=== PATIENT | male | born 1960 | race Caucasian/White ===

== ENCOUNTER 2017-12-16 14:27 | Inpatient (IN) | payer OTHER ==
[2017-12-16] VITALS (8 sets, daily range): BP systolic 157–180; BP diastolic 90–113
[~2017-12-16] VITALS: Ht 185.4 cm; Wt 70.3 kg
--- NOTE | ~2017-12-16 | PR ---
[place], [place] PROGRESS NOTE NAME: NORMA CARTER UNIT #: [id number] ROOM: 405 DOCTOR: NEHA STONE MD BIRTHDATE: [birth year] DOS: 12/18/2017 PULMONARY PROGRESS NOTE SUBJECTIVE: He had been noted comfortable, complaining of some pain in the groin with stretching his leg, otherwise noted without any abdominal pain. The patient's shortness of breath has improved after thoracentesis. Symptoms of cough and shortness of breath has been decreased. There were no symptoms of coughing, chest pain or hemoptysis. OBJECTIVE: VITAL SIGNS: normal temperature 99.6 degree Fahrenheit, respiratory rate of 20-16, heart rate 91, blood pressure 114/74. Pulse oxygen saturation room air 97% saturation. HEENT: No new change. NECK: Supple. Loss of muscle mass and the temporal muscle mass loss was noted. CARDIOVASCULAR: S1, S2 audible. LUNGS: The lung was noted with decreased sounds in the right lung base, otherwise normal. ABDOMEN: Soft, nontender. EXTREMITIES: Noted without any acute edema, clubbing or cyanosis. MUSCULOSKELETAL: Without any acute deformities. LABORATORY DATA: Sputum for preliminary culture was noted as normal azucena, final culture results were pending. Culture of the pleural fluid noted with normal azucena. CMP today noted with normal BUN and creatinine. The abnormal LFTs were still noted as well. Blood culture, no bacterial growth from the 2nd and the final results. IMPRESSION: 1. Thoracentesis for the patient done with a low-grade fever for the patient at this time. Possibility of pneumonia with lymphocyte predominant effusion, rule out other etiology. The patient with followup cytology results. 2. Liver cirrhosis. PLAN OF TREATMENT: Deescalate the antibiotics. The patient continues with Zosyn and stop all the other antibiotics. The patient has cultures were not supporting the need of the other antibiotics. Monitoring temperature curve. Obtain a chest x-ray tomorrow morning for the patient to reassess the pleural fluid on the right side, which were removed with thoracentesis. [place], [place] PROGRESS NOTE NAME: NORMA CARTER UNIT #: [id number] ROOM: 405 DOCTOR: NEHA STONE MD BIRTHDATE: [birth year] NEHA DUNN MD CM:PNTRANS [id number] NEHA HAMMER MD 12/23/17 1050 JANNA CRESPO
[~2017-12-16 14:27] MED LIST: B-1100 MG PO; LOPRESSOR25 MG PO; MULTIPLE VITAMI1 CAP PO
[2017-12-16] MEDS ORDERED: ASPIR-TRIN325 MG PO (14:39)
[2017-12-16 14:46] LABS: BASO # 0.1 10*3/uL (0.0-0.1); BASO % 0.6 % (0.0-1.0); EOS % 0.4 % (1.0-4.0); HEMATOCRIT 41.1 % (42.0-52.0); HEMOGLOBIN 13.5 g/dl (14.0-18.0); LYMPH # 1.7 10*3/uL (1.3-4.4); LYMPH % 16.6 % (27.0-41.0); MEAN CELL VOLUME 94.7 fl (80.0-94.0); MEAN CORPUSCULAR HGB 31.1 pg (27.0-31.0); MEAN CORPUSCULAR HGB CONC 32.8 g/dl (33.0-37.0); MEAN PLATELET VOLUME 10.6 fl (9.6-12.3); MONO % 10.3 % (3.0-9.0); NEUT # 7.2 10*3/uL (2.3-7.9); NEUT % 71.8 % (47.0-73.0); PLATELET COUNT AUTOMATED 162 10*3/uL (130-400); RED BLOOD COUNT 4.34 10*6/uL (4.50-5.90); RED CELL DISTRI WIDTH 13.2 % (0-14.5)
[2017-12-16 15:01] LABS: ALBUMIN 2.5 gm/dl (3.1-4.5); ALKALINE PHOSPHATASE 153 U/L (45-117); BUN 8 mg/dl (7-24); CHLORIDE 101 mmol/L (98-107); CREATININE 0.76 mg/dL (0.70-1.30); LIPASE 268 U/L (73-393); POTASSIUM 3.8 mmol/L (3.5-5.1); SGOT/AST 76 IU/L (3-35); SGPT/ALT 24 U/L (12-78); SODIUM 133 mmol/L (136-145); TOTAL PROTEIN 7.7 gm/dL (6.4-8.2)
[2017-12-16 21:18] LABS: BILIRUBIN 2+ (NEGATIVE); BLOOD NEGATIVE (NEGATIVE); CLARITY TURBID (CLEAR); COLOR ORANGE (YELLOW); GLUCOSE NEGATIVE (NEGATIVE); KETONE 1+ (NEGATIVE); NITRITE POSITIVE (NEGATIVE); PH 5.5 (5.0-9.0); SPECIFIC GRAVITY >= 1.030 (1.005-1.030)
[2017-12-16 21:37] LABS: LEUKO ESTERASE NEGATIVE (NEGATIVE)
[2017-12-17] VITALS: BP 167/97
[2017-12-17 04:00] VITALS: BP 158/96
[2017-12-17 05:57] LABS: BASO # 0.1 10*3/uL (0.0-0.1); BASO % 0.7 % (0.0-1.0); EOS # 0.1 10*3/uL (0.0-0.4); EOS % 1.2 % (1.0-4.0); HEMATOCRIT 37.9 % (42.0-52.0); HEMOGLOBIN 12.6 g/dl (14.0-18.0); LYMPH # 1.4 10*3/uL (1.3-4.4); LYMPH % 21.1 % (27.0-41.0); MEAN CELL VOLUME 95.9 fl (80.0-94.0); MEAN CORPUSCULAR HGB 31.9 pg (27.0-31.0); MEAN CORPUSCULAR HGB CONC 33.2 g/dl (33.0-37.0); MEAN PLATELET VOLUME 11.4 fl (9.6-12.3); MONO # 0.9 10*3/uL (0.1-1.0); NEUT # 4.3 10*3/uL (2.3-7.9); NEUT % 63.4 % (47.0-73.0); PLATELET COUNT AUTOMATED 127 10*3/uL (130-400); RED BLOOD COUNT 3.95 10*6/uL (4.50-5.90); RED CELL DISTRI WIDTH 13.5 % (0-14.5); WHITE BLOOD COUNT 6.8 10*3/uL (4.8-10.8)
[2017-12-17 06:29] LABS: ALBUMIN 2.2 gm/dl (3.1-4.5); BUN 10 mg/dl (7-24); CHLORIDE 102 mmol/L (98-107); CHOLESTEROL 61 mg/dL (<200); CREATININE 0.64 mg/dL (0.70-1.30); POTASSIUM 4.1 mmol/L (3.5-5.1); SGOT/AST 67 IU/L (3-35); SGPT/ALT 20 U/L (12-78); SODIUM 136 mmol/L (136-145); TRIGLYCERIDES 93 mg/dl (<150); VLDL CHOLESTEROL 19 mg/dL (6-40)
[2017-12-17 06:36] LABS: ALKALINE PHOSPHATASE 140 U/L (45-117); FREE T4 1.44 ng/dl (0.76-1.46); HDL CHOLESTEROL 16 mg/dl (40-60); LDL CHOLESTEROL 26 mg/dL (9-159)
[2017-12-17 06:38] LABS: VITAMIN D, 25-HYDROXY 7.5 ng/mL (30-100)
[2017-12-17 06:53] LABS: ACT PARTIAL THROMBO TIME 25.4 SECONDS (20.8-31.5); INTERNATIONAL NORM RATIO 1.1 (2.0-3.5)
[2017-12-17 08:00] VITALS: BP 162/99
[2017-12-17 12:00] VITALS: BP 170/92
[2017-12-17 12:17] LABS: BODY FLUID WBC 366 /uL
[2017-12-17 12:49] LABS: BF LYMPHOCYTES 16 %; BF MACROPHAGES 77 %; BF MESOTHELIALS 7 %
[2017-12-17 16:00] VITALS: BP 140/88
[2017-12-17 20:00] VITALS: BP 131/86
[2017-12-18] VITALS: BP 123/75
[2017-12-18 06:32] LABS: BASO % 0.6 % (0.0-1.0); EOS # 0.1 10*3/uL (0.0-0.4); EOS % 1.3 % (1.0-4.0); HEMOGLOBIN 12.7 g/dl (14.0-18.0); LYMPH # 1.6 10*3/uL (1.3-4.4); LYMPH % 23.8 % (27.0-41.0); MEAN CELL VOLUME 96.9 fl (80.0-94.0); MEAN CORPUSCULAR HGB 30.8 pg (27.0-31.0); MEAN CORPUSCULAR HGB CONC 31.8 g/dl (33.0-37.0); MEAN PLATELET VOLUME 11.2 fl (9.6-12.3); MONO # 0.8 10*3/uL (0.1-1.0); MONO % 11.6 % (3.0-9.0); NEUT # 4.2 10*3/uL (2.3-7.9); NEUT % 62.3 % (47.0-73.0); PLATELET COUNT AUTOMATED 122 10*3/uL (130-400); RED BLOOD COUNT 4.13 10*6/uL (4.50-5.90); RED CELL DISTRI WIDTH 13.5 % (0-14.5); WHITE BLOOD COUNT 6.7 10*3/uL (4.8-10.8)
[2017-12-18 06:40] LABS: CHLORIDE 103 mmol/L (98-107); POTASSIUM 4.5 mmol/L (3.5-5.1); SODIUM 137 mmol/L (136-145)
[2017-12-18 06:47] LABS: ALBUMIN 2.1 gm/dl (3.1-4.5); ALKALINE PHOSPHATASE 136 U/L (45-117); BUN 10 mg/dl (7-24); SGOT/AST 65 IU/L (3-35); SGPT/ALT 20 U/L (12-78); TOTAL PROTEIN 6.8 gm/dL (6.4-8.2)
[2017-12-18 08:00] VITALS: BP 127/80
[2017-12-18] MEDS ORDERED: FUROSEMIDE40 MG PO (13:02)
[2017-12-18] MEDS ORDERED: PHARMASSURE FO0.4 MG PO (13:02)
[2017-12-18] MEDS ORDERED: LOPRESSOR25 MG PO (13:02)
[2017-12-18] MEDS ORDERED: Vitamin D PO (13:02)
[2017-12-18] MEDS ORDERED: ALDACTONE25 MG PO (13:02)
== END 2017-12-18 13:25 | disposition home or self-care (01) | DRG 432 ==
LOC: ED 14:27 → EDHOLD 16:31 → 4E 17:22
PROVIDERS: Internal Medicine; Nurse Practitioner Family
PROC: 0W9G3ZZ Drainage of Peritoneal Cavity, Percutaneous Approach (ICD-10-PCS; principal; 2017-12-17)
DX: K70.31 Alcoholic cirrhosis of liver with ascites (principal); E43 Unspecified severe protein-calorie malnutrition; J90 Pleural effusion, not elsewhere classified; E87.2 Acidosis; D69.6 Thrombocytopenia, unspecified; E87.1 Hypo-osmolality and hyponatremia; R65.10 Systemic inflammatory response syndrome (SIRS) of non-infectious origin without acute organ dysfunction; J98.11 Atelectasis; F10.10 Alcohol abuse, uncomplicated; H54.61 Unqualified visual loss, right eye, normal vision left eye; F17.210 Nicotine dependence, cigarettes, uncomplicated; D72.821 Monocytosis (symptomatic); I10 Essential (primary) hypertension; I16.0 Hypertensive urgency; I86.8 Varicose veins of other specified sites; D72.810 Lymphocytopenia; D53.9 Nutritional anemia, unspecified; E55.9 Vitamin D deficiency, unspecified; E53.8 Deficiency of other specified B group vitamins; Z71.6 Tobacco abuse counseling; Z68.20 Body mass index [BMI] 20.0-20.9, adult; Z83.3 Family history of diabetes mellitus

== ENCOUNTER 2017-12-18 19:06 | Inpatient (IN) | payer OTHER ==
[~2017-12-18] VITALS: Ht 182.9 cm; Wt 68.3 kg
--- NOTE | ~2017-12-18 | CON ---
[place], [place] REPORT OF CONSULTATION NAME: NORMA CARTER UNIT #: [id number] ROOM: 516 DOCTOR: SHAUN HAMMER MDNEHA BIRTHDATE: [birth year] DOS: 12/19/2017 REQUESTING SERVICE: Hospitalist service. REASON FOR CONSULTATION: Assess the patient for current pleural fluid and shortness of breath. HISTORY OF PRESENT ILLNESS: This is a 57-year-old white male who will be seen independently today with [id number] encounter, history was confirmed for the patient. The labs were reviewed for this patient as well. Physical examination performed. Assessment of the patient for today's consultation personally completed. Any changes in recommendation and treatment was personally made as well. Note done by the medical appointment clerk was approved. This is a 57-year-old white male who has been recently discharged from the hospital on the 3rd of this month after medical management of current new onset of liver cirrhosis diagnosed with paracentesis done. The patient discharged home and returned back to the hospital for further assessment. The patient stated that the abdomen was noted with further distention with pain described where he was also noted symptoms of shortness of breath. The patient does not have any symptoms of coughing or sputum expectoration. Denies symptoms of chest pain, wheezing, or hemoptysis. He has been currently in the hospital for the medical management possibility of sepsis and other additional issues. REVIEW OF SYSTEMS: Completed by the medical appointment clerk. PAST MEDICAL HISTORY: 1. Recent diagnosis of alcoholic liver cirrhosis. 2. Blindness of the right eye, which is chronic. 3. Essential hypertension. 4. Folate deficiency. 5. Dependence on alcohol. 6. Vitamin D deficiency. PAST SURGICAL HISTORY: Noted paracentesis, which was done recently on this last admission. There were no other surgical history. SOCIAL HISTORY: The patient stated that he is currently . Has 2 children, lives at home. He has been noted with tobacco use as a teenager, 2 packs of cigarettes per day actively. He was also noted heavy drinking alcohol as vodka and whiskey on a daily basis about 1/4 of a gallon. He has been abstaining from any alcohol use for the past couple of weeks. FAMILY HISTORY: Father at age of 80 years with complication of diabetes mellitus. Mother at 86 years old from old age. HOME MEDICATIONS: Listed use of folic acid, Lasix, Lopressor, Aldactone, and vitamin D. DRUG ALLERGIES: The patient noted no known drug allergies. [place], [place] REPORT OF CONSULTATION NAME: NORMA CARTER UNIT #: [id number] ROOM: 516 DOCTOR: SHAUN HAMMER MD,NEHA BIRTHDATE: [birth year] PHYSICAL EXAMINATION: GENERAL: A 57-year-old white male, appear to be quite malnourished. The patient and cachexia for loss temporal muscle mass. HEENT: The eyes were sunken. Mild icterus was also noted, but there was no distress. VITAL SIGNS: The patient's height recorded by the nursing staff at the time of the admission with height of 6 feet. Weight of 150 pounds, BMI 20.4. Vital signs which have been recorded as a normal temperature since admission, respiratory rate 16-20, heart rate of 96-103, blood pressure 134/82-114/68. Pulse oxygen saturation on room air was 99% saturation at rest. HEENT: Head was atraumatic. Eyes: Noted with icterus. Oral mucosa was dry. NECK: Supple. Loss of temporal muscle mass as well. CARDIOVASCULAR SYSTEM: S1, S2 audible. LUNGS: Noted with absent breath sounds noted in the lower portion of the right hemithorax in the left lung base. There were no crackles or wheezing. Breaths are noted, [id number] generally diminished. ABDOMEN: Noted with ascites with tenderness on superficial palpation. Bowel sounds present. EXTREMITIES: Loss of muscle mass. VISIBLE SKIN: ____. There were no other lesions or rashes. MUSCULOSKELETAL: Loss of muscle mass noted. NEUROLOGIC: No focal neurologic deficit were assessed. There were no focal deformities. CENTRAL NERVOUS SYSTEM: No focal deficit. Cranial nerves 2-12 intact. LABORATORY DATA: The CBC that was done yesterday, WBC count normal, hemoglobin 13.6, hematocrit normal, platelet count was normal. PT/PTT were noted as INR 1.2 yesterday. The lactic acid 2.0 yesterday. Ammonia level was normal at 13. CMP yesterday on admission, BUN normal, creatinine was normal. AST 78, ALT normal, and alkaline phosphatase 174. The CBC of the patient this morning: WBC count normal, hemoglobin 11.5, hematocrit 34.8, and platelet count 109,000. CMP this morning, normal BUN and creatinine. LFTs for the patient was noted by the same with bilirubin 1.4. CT scan of the abdomen and pelvis was done yesterday afternoon shows moderate size pleural fluids were noted for the patient with area of compression atelectasis on the right side and a small left-sided pleural fluid was also noted. Several cystic areas of the lung for the patient noted in the right lower lung as well. IMPRESSION: 1. The patient will be currently admitted to the hospital noted with alcoholic liver cirrhosis, recurrent ascites with abdominal pain, rule out spontaneous bacterial peritonitis. 2. Pleural fluid may be related to the current alcoholic liver cirrhosis. The patient with the etiology including pneumonia excluded. 3. Cyst in the lung. Rule out any cystic lung disease including pulmonary Langerhans cell histiocytosis or other etiologies. 4. Thrombocytopenia related to the alcoholic liver disease. 5. History of chronic heavy alcohol dependence with the patient with abstinence of alcohol use noted in the past few weeks. [place], [place] REPORT OF CONSULTATION NAME: NORMA CARTER UNIT #: [id number] ROOM: 516 DOCTOR: SHAUN HAMMER MD,NEHA BIRTHDATE: [birth year] 6. History of chronic heavy nicotine dependence as well. PLAN OF MANAGEMENT: At this time, the patient will be continued on current antibiotic empirically. Monitor culture results. Thoracentesis was planned for the patient to be done in the morning. De-escalation of antibiotic based on the culture results. The risk and benefits of the current procedure were discussed. The patient was agreeable for the thoracentesis to be done at the bedside and that will be done tomorrow. In the meantime, continue other supportive plan of therapy care plan. Other additional treatment changes will be made based on progression of the illness. Nicotine replacement patches could be ordered in case of nicotine withdrawal. Other supportive therapy, plan of management, monitoring thrombocytopenia. There were no signs of any encephalopathy related to the current liver disease. ____ was planned to be done today. NEHA DUNN MD CM:CONSTR:REPORT OF CONSULTATION 1628 12/19/17 7209 interface
--- NOTE | ~2017-12-18 | CON ---
[place], [place] REPORT OF CONSULTATION NAME: NORMA CARTER UNIT #: [id number] ROOM: 516 DOCTOR: LIBAN LYNN DO BIRTHDATE: [birth year] DOS: 12/19/2017 REASON FOR CONSULTATION: Sepsis secondary to healthcare-associated pneumonia with a moderate right pleural effusion CONSULTING PROVIDER: The hospitalist service. HISTORY OF PRESENT ILLNESS: This patient is a 57-year-old white male who presented to the ED last night due to increased swelling and distention and pain of his abdomen. The patient had been admitted earlier this week on 09/17/2017 with similar complaints. He had a paracentesis done and was feeling better by yesterday afternoon and was discharged on 12/18/2017. The patient does note that he has had some shortness of breath, slightly worsened with exertion and he has had a cough productive of thick clear sputum. He denies any chest pain, nausea, vomiting, diarrhea or constipation, but does note periodic lightheadedness, especially when changing position from lying down or seated to standing. While in the ED, a CT of the abdomen and pelvis was done to evaluate his abdominal distention and apparent recurrent ascites. The CAT scan of the abdomen and pelvis did show moderate sized right pleural effusion and a right lower lobe opacity concerning for possible pneumonia. The CAT scan also noted mild free fluid in the abdomen and moderate free fluid in the pelvis with mesenteric edema. The patient denies any known history of liver disease, though he does admit to chronic alcohol abuse, stating he drinks 1/4 gallon of whiskey daily as well as at least 1 beer daily. The patient also admits to 2 packs per day cigarette smoking history since age 19. He denies any illicit drug use. Also of note, the patient has numerous "homemade tattoos." REVIEW OF SYSTEMS: GENERAL: Denies fevers. Denies chills. Denies any significant weight change. HEENT: Denies hearing loss. Denies drainage from the eyes, ears or nose. Denies pain in the eyes, ears or nose or mouth. Denies difficulty swallowing. Reports blurriness in the left eye and near total blindness in the right eye. CARDIOVASCULAR: Denies chest pain. Denies palpitations. Denied lower extremity edema. Denies diaphoresis. RESPIRATORY: Reports cough productive of thick clear sputum. Reports dyspnea on exertion. Reports shortness of breath. Denies hemoptysis. Denies wheezing. Denies stridor. ABDOMEN: Reports abdominal pain and distention. Denies nausea. Denies vomiting. Denies diarrhea. Denies constipation. Denies melena. Denies hematochezia. Denies hematemesis. Denies loss of appetite. GENITOURINARY: Denies dysuria. Denies hematuria. Denies increased frequency, hesitancy, or urgency. NEUROLOGIC: Denies dizziness. Denies confusion. Reports lightheadedness. PSYCHIATRIC: Denies depression. Denies anxiety. Admits to alcohol abuse. ENDOCRINE: Denies polydipsia. Denies heat intolerance. SKIN: Denies new rashes, lesions or ulcers. PAST MEDICAL HISTORY: Alcoholic liver disease, blindness of right eye, cirrhosis of liver, essential hypertension, folic acid deficiency, alcohol abuse, vitamin D deficiency. [place], [place] REPORT OF CONSULTATION NAME: NORMA CARTER UNIT #: [id number] ROOM: 6 DOCTOR: LIBAN LYNN DO BIRTHDATE: [birth year] PAST SURGICAL HISTORY: Therapeutic paracentesis performed earlier this week. SOCIAL HISTORY: Significant daily alcohol use with 0.25 gallon of whiskey daily and at least one beer daily, cigarette smoker 2 packs per day since age 19. Denies illicit drug use. Reports multiple homemade tattoos. FAMILY HISTORY: Father at age 70 from complications of diabetes. Mother in her 80s of old age. MEDICATIONS: Reported home medications: Folic acid daily supplementation, Lasix 40 mg p.o. daily, Lopressor 25 mg p.o. q. 12 hours, spironolactone 25 mg p.o. daily and vitamin D 50,000 International Units p.o. weekly taken on Tuesdays. DRUG ALLERGIES: No known drug allergies. PHYSICAL EXAMINATION: GENERAL: This is a 57-year-old white male, examined while sitting up in bed. VITAL SIGNS: He is 6 feet tall and weighs 68.3 kilograms with a BMI of 20.4. Vital signs at time of exam, temperature 98.1, pulse 88, respiratory rate 20, blood pressure 114/68, bedside pulse ox of 99% on room air. HEAD: Normocephalic, atraumatic. EYES: No scars. No lesions. No ulcerations. No drainage. Nonicteric. ENT: No lesions. No scars. No masses. Nares patent. Oropharynx clear. Oral mucosa moist. No pharyngeal erythema or exudate. NECK: Without lesions, without masses. No ulcerations. Trachea is midline. Supple and nontender. No lymphadenopathy noted. HEART: Regular rate and rhythm. No gallop. No murmur. No edema in the lower extremities. LUNGS: No respiratory distress at rest, though patient notes dyspnea with exertion. Breath sounds are absent in the right lower lobe, but no rales, rhonchi or wheezing is appreciated. ABDOMEN: Significantly distended and generally tender to palpation. Bowel sounds are present. EXTREMITIES: No clubbing. No cyanosis. No erythema. No edema. NEUROLOGIC: Grossly intact without focal neuro deficit. Sensation grossly intact. PSYCHIATRIC: Good historian. Good recent and remote memory. Fair judgment and insight. He exhibits normal mood and normal affect. SKIN: Warm, dry. No rashes, lesions or ulcerations noted. Numerous homemade tattoos are noted. LABORATORY AND DIAGNOSTIC DATA: CBC on admission: White count 9.3, hemoglobin 13.6, hematocrit 42.1, platelet count 140. CBC from this morning: White count 6.8, hemoglobin 11.5, hematocrit 34.8 and platelet count 109. Coagulation studies from admission: PT 12.5 with an INR of 1.2, APTT 25.5. CMP on admission: Sodium 136, potassium 4.6, chloride 102, bicarbonate 25, BUN 15, creatinine 0.89, glucose 105, calcium 8.7 with an albumin of 2.4, total protein 7.5 and mild transaminitis noted with normal total bilirubin of 1, but an AST of [place], [place] REPORT OF CONSULTATION NAME: NORMA CARTER UNIT #: [id number] ROOM: 516 DOCTOR: LIBAN LYNN DO BIRTHDATE: [birth year] 78, ALT of 22 and alkaline phosphatase 174. Ammonia level taken at time of admission was normal at 13. Lactic acid checked at time of admission was normal at 2. CMP this morning showed sodium 137, potassium 3.6, chloride 103, bicarbonate 24, BUN 16, creatinine 0.78, glucose 96, calcium 7.9 with an albumin of 1.9, phosphorus 3.6, low magnesium at 1.3, total bilirubin increased to 1.4, AST slight decrease to 66, ALT 18, alkaline phosphatase slight decrease to 127. Troponins have been cycled x 3 and are negative x 3. Urinary Legionella and strep antigens have been ordered and are pending. Blood cultures are pending. Sputum culture has not yet been collected. CT of the abdomen and pelvis without contrast on admission noted no obstruction or herniated bowel loops or focal inflammatory changes. Multiple mildly enlarged mesenteric and retroperitoneal nodes. Moderate right pleural effusion. Right lower lobe opacity. Pneumonia possible. Mild free fluid in the abdomen and moderate free fluid in the pelvis. There is mesenteric edema. Chest x-ray taken this morning shows new right pleural effusion. IMPRESSION: 1. Moderate right pleural effusion, most likely secondary to abdominal ascites from liver pathology. 2. Concerns for right lower lobe pneumonia as well and the patient met sepsis criteria with this. 3. Pneumonia, potentially healthcare-associated pneumonia. 4. Alcohol abuse. 5. Tobacco abuse. 6. Essential hypertension. 7. Severe protein-calorie malnutrition. PLAN OF MANAGEMENT: Continue the current broad-spectrum antibiotic regimen of vancomycin, Zosyn and Levaquin. Continue p.r.n. DuoNeb breathing treatments. Continue diuresis with IV Lasix 40 mg daily. We will plan for thoracentesis to drain the moderate size right pleural effusion for diagnostic and therapeutic purposes tomorrow. We will hold Lovenox for tomorrow in preparation for the thoracentesis. The patient has been started on nicotine supplementation with nicotine patch. He does express willingness to quit smoking cigarettes. He has also been advised to significantly cut back his alcohol consumption and understands and expresses interest in quitting his alcohol abuse as well. We thank the hospitalist team for allowing us to participate in the care of this patient. LIBAN LYNN DO [place], [place] REPORT OF CONSULTATION NAME: NORMA CARTER UNIT #: [id number] ROOM: 516 DOCTOR: LIBAN LYNN DO BIRTHDATE: [birth year] NEHA DUNN MD CM:CONSTR:REPORT OF CONSULTATION 1525 12/19/17 1825 interface
--- NOTE | ~2017-12-18 | PR ---
[place], [place] PROGRESS NOTE NAME: NORMA CARTER UNIT #: [id number] ROOM: 516 DOCTOR: NEHA STONE MD BIRTHDATE: [birth year] DOS: 12/22/2017 PULMONARY PROGRESS NOTE SUBJECTIVE: He had been noted comfortable, complaining of some pain in the groin with stretching his leg, otherwise noted without any abdominal pain. The patient's shortness of breath has improved after thoracentesis. Symptoms of cough and shortness of breath has been decreased. There were no symptoms of coughing, chest pain or hemoptysis. OBJECTIVE: VITAL SIGNS: normal temperature 99.6 degree Fahrenheit, respiratory rate of 20-16, heart rate 91, blood pressure 114/74. Pulse oxygen saturation room air 97% saturation. HEENT: No new change. NECK: Supple. Loss of muscle mass and the temporal muscle mass loss was noted. CARDIOVASCULAR: S1, S2 audible. LUNGS: The lung was noted with decreased sounds in the right lung base, otherwise normal. ABDOMEN: Soft, nontender. EXTREMITIES: Noted without any acute edema, clubbing or cyanosis. MUSCULOSKELETAL: Without any acute deformities. LABORATORY DATA: Sputum for preliminary culture was noted as normal azucena, final culture results were pending. Culture of the pleural fluid noted with normal azucena. CMP today noted with normal BUN and creatinine. The abnormal LFTs were still noted as well. Blood culture, no bacterial growth from the 2nd and the final results. IMPRESSION: 1. Thoracentesis for the patient done with a low-grade fever for the patient at this time. Possibility of pneumonia with lymphocyte predominant effusion, rule out other etiology. The patient with followup cytology results. 2. Liver cirrhosis. PLAN OF TREATMENT: Deescalate the antibiotics. The patient continues with Zosyn and stop all the other antibiotics. The patient has cultures were not supporting the need of the other antibiotics. Monitoring temperature curve. Obtain a chest x-ray tomorrow morning for the patient to reassess the pleural fluid on the right side, which were removed with thoracentesis. [place], [place] PROGRESS NOTE NAME: NORMA CARTER UNIT #: [id number] ROOM: 516 DOCTOR: NEHA STONE MD BIRTHDATE: [birth year] NEHA DUNN MD CM:WILBERT 1309 1523 NEHA HAMMER MD 12/23/17 1048 interface
--- NOTE | ~2017-12-18 | PR ---
[place], [place] PROGRESS NOTE [facility]: [id number] UNIT #: [id number] ROOM: 516 DOCTOR: LIBAN LYNN DO BIRTHDATE: [birth year] DOS: 12/20/2017 SUBJECTIVE: The patient is seen and examined while sitting upright in bed this morning. He notes no respiratory distress at this time and states he has been up and ambulating without getting short of breath. He denies any other symptoms at this time including chest pain, nausea, vomiting, fever, chills, lightheadedness or dizziness, diarrhea or constipation. He states he is eating well. Also, he notes he has still been urinating well with diuretic therapy. OBJECTIVE: VITAL SIGNS: At time of exam, temperature 97.2, pulse 96, respiratory rate 20, blood pressure 99/66 and bedside pulse ox 97% on room air. GENERAL: Alert, awake, in no acute distress, responsive and cooperative, very thin and somewhat malnourished appearing. HEAD: Normocephalic, atraumatic. EYES: No lesions, no ulcerations. Nonicteric. No drainage. ENT: No lesion, no scars, no masses. Nares patent. Oropharynx is clear. NECK: Without lesions, without masses. No ulcerations. Trachea is midline. LUNGS: Still with absent breath sounds in the right lower lobe, though the extent of the absent breath sounds has improved since yesterday. Other lung nova are clear with no wheezes, rales or rhonchi appreciated. HEART: Regular rate and rhythm. No gallop. No murmur. No edema in lower extremities. ABDOMEN: Distended abdomen, slightly softer than yesterday, slightly less tender to palpation over all quadrants. Bowel sounds are present. EXTREMITIES: No clubbing, no cyanosis, no erythema, no edema. NEUROLOGIC: Grossly intact without focal neuro deficits. Sensation grossly intact. PSYCHIATRIC: Good historian. Good recent and remote memory. Exhibits normal mood and affect. SKIN: Warm and dry. No ecchymoses. Numerous "homemade tattoos" noted. LABORATORY AND DIAGNOSTIC DATA: Pleural fluid analysis taken from thoracentesis this morning shows pH of 7.429 with 181 white blood cells and 2000 red blood cells. There is 96%, lymphocyte predominance to the white blood cell count. Pleural fluid glucose is 111. Pleural fluid total protein is 4. Pleural fluid albumin 1.8. Pleural fluid LDH 112. Pleural fluid culture and gram stain are pending. On CMP yesterday serum total protein was 6.3. The pleural fluid to serum protein ratio is greater than 0.5, indicating an exudative pleural fluid. Urinary Legionella and strep antigens are still pending. Blood cultures are negative. Chest x-ray obtained after thoracentesis does note improved pleural fluid reduction after right thoracentesis without pneumothorax. Persistent right basilar opacity remains suggesting pneumonia. Left lung is clear without left pleural effusion. No acute osseous process. Impression, there is no pneumothorax after right thoracentesis. Right basal parenchymal change compatible with pneumonia. IMPRESSION: 1. Significantly reduced right pleural effusion, status post therapeutic and diagnostic thoracentesis today. Pleural fluid analysis indicates an exudative [place], [place] PROGRESS NOTE NAME: NORMA CARTER UNIT #: [id number] ROOM: 516 DOCTOR: LIBAN LYNN DO BIRTHDATE: [birth year] pleural effusion. 2. Right lower lobe pneumonia with initial resolving subsequent sepsis, potentially healthcare-associated pneumonia. 3. Tobacco abuse. 4. Alcohol abuse. 5. Essential hypertension. 6. Severe protein-calorie malnutrition. TREATMENT PLAN: The patient is status post therapeutic and diagnostic pleural thoracentesis today with significant reduction of his pleural effusion. Continue antibiotic coverage for pneumonia. Continue antibiotic coverage for potential HCAP with vanc, Zosyn, and Levaquin and await results of pleural fluid, gram stain and culture. Continue the use of diuretic medications as well. Further abdominal workup regarding ascites and possibly a cirrhotic liver per primary team. LIBAN LYNN DO NEHA DUNN MD CM:PNBYRON 18 38 LIBAN LYNN DO 12/20/171938 interface
--- NOTE | ~2017-12-18 | PROC NOTE ---
[place], [place] PROCEDURE NOTE NAME: NORMA CARTER UNIT #: [id number] ROOM: 516 DOCTOR: SHAUN HAMMER MD,NEHA BIRTHDATE: [birth year] DOS: 12/20/2017 PREOPERATIVE DIAGNOSIS: The patient with moderate-large right pleural fluid. POSTOPERATIVE DIAGNOSES: Removal of 1000 mL or greater right pleural space without without any complication. PROCEDURE DESCRIPTION: Informed consent obtained from the patient. The patient was placed in sitting position. Ultrasound of the chest was personally performed. The site of thoracentesis was marked. The skin was cleaned with chlorhexidine solution. After that, 1% lidocaine was administered in the skin intercostal space during administration of local anesthetic, right pleural space was entered. A small amount of fluid was aspirated. After that incision was given in the skin. [place] thoracentesis catheter introduced through the incision into the right pleural space. A total of 1000+ mL pleural fluid was removed, which appeared to be yellowish in color from the right pleural space without any difficulty. Procedure well tolerated without any complication. Chest x-ray post-procedure showed marked improvement in the aeration of the lung on the right side of the patient with minimal remaining pleural fluid. There was no pneumothorax. Pleural fluid sent for all the necessary testing. NEHA DUNN MD CM:PROCNOTE:PROCEDURE NOTE [phone] NEHA HAMMER MD
--- NOTE | ~2017-12-18 | PR ---
[place], [place] PROGRESS NOTE NAME: NORMA CARTER UNIT #: [id number] ROOM: 516 DOCTOR: NEHA STONE MD BIRTHDATE: [birth year] DOS: 12/23/2017 SUBJECTIVE: The patient was noted comfortable at this time without any acute distress. He has not been noted any ongoing acute complaints at present time. The patient has not been reported any symptoms of chest pain or hemoptysis at present time. OBJECTIVE: VITAL SIGNS: The patient showed normal temperature, respiratory rate 20, heart rate 90, blood pressure 111/79, pulse ox saturation 96% to 98% at rest on room air. HEENT: No acute change. NECK: Supple. CARDIOVASCULAR: S1, S2 audible. LUNGS: Mild decreased breath sounds noted in the right lower lung. ABDOMEN: Noted soft with mild to moderate ascites. EXTREMITIES: Without any acute edema. VISIBLE SKIN: No lesions or rashes. LABORATORY DATA: Chest x-ray done this morning does not show any recurrence of pleural fluid, minimal right pleural fluid was present on the right side. IMPRESSION: 1. The patient's resolution of pleural fluid resolving, possibility of acute infection as well at this time without any recurrence of pleural fluid. 2. The patient with cirrhosis of the liver with ascites as well. The patient underwent ultrasound of the abdomen today, was noted with a finding of cirrhotic liver and lesion in the right hepatic lobe, which is described as nonspecific. Small right pleural fluid also reported as well as ascites. PLAN OF MANAGEMENT: The patient could be discharged home on oral antibiotic at this time. Outpatient followup could be established for assessment of pulmonary disease. In the meantime, continue other therapy, plan of management as well. Usual care, other supportive plan of therapy and care. [place], [place] PROGRESS NOTE NAME: NORMA CARTER UNIT #: [id number] ROOM: 516 DOCTOR: NEHA STONE MD BIRTHDATE: [birth year] NEHA DUNN MD CM:PNTRANS [phone] NEHA HAMMER MD 12/23/17 3989 interface
--- NOTE | ~2017-12-18 | PR ---
[place], [place] PROGRESS NOTE NAME: NORMA CARTER UNIT #: [id number] ROOM: 516 DOCTOR: SHAUN HAMMER MDNEHA BIRTHDATE: [birth year] DOS: 12/20/2017 The patient independently seen and examined, [id number] encounter, history was confirmed, physical examination performed, all the labs were reviewed, the assessment and management was completed, note done by the healthcare or medical were completed. SUBJECTIVE: The patient has been noted comfortable at this time, has paracentesis done yesterday. Today was planned for the thoracentesis to be done for the right pleural fluid, which was noted about moderate size, assessed with ultrasound. The patient has not been noted with symptoms of chest pain. Denies any symptoms of cough. Denies symptoms of nausea or vomiting. The patient denies any symptoms of hematemesis, melena. Denies symptoms of hematochezia. He does not have any symptoms of headache. The patient denies any abnormal lesions or itching on the skin. Remaining systems were reviewed. They were noted all negative. PHYSICAL EXAMINATION: VITAL SIGNS: For the patient which has been recorded shows the temperature noted as normal, respiratory rate 20, heart rate of 96, blood pressure of 120/76-99/66. Intake for the patient recorded as 1726/2000, negative 280 mL. Pulse oxygen saturation on room air 96% saturation at rest. HEENT: Mild icterus. Head was atraumatic. Oral mucosa moist. NECK: Supple. CARDIOVASCULAR: S1, S2 audible. LUNGS: The absent breaths are noted in the right lower lung and the left lung base. There were no wheezing or crackles. ABDOMEN: Soft, nontender. Reduction of the distention of the abdomen noted. EXTREMITIES: Without any edema, clubbing, cyanosis. VISIBLE SKIN: Noted without any lesions or rashes. MUSCULOSKELETAL SYMPTOMS: With chronic acute deformities. CENTRAL NERVOUS SYSTEM: Intact. REVIEW OF LABS FOR THIS VISIT: The culture of the urine of 12/16/2017 was noted no bacterial growth findings yesterday. Culture of the peritoneal fluid was noted as no bacterial growth on 3rd of this month. The vancomycin trough level today was noted elevated 23.4. The blood culture from 4th of this month 2 sets were noted no bacterial growth. IMPRESSION: 1. The patient with [id number] right pleural fluid with compression atelectasis with recurrent history of cirrhosis of the liver, ascites with fluid. 2. The patient with history of past heavy alcohol use as well as tobacco use as well. Currently, the patient has been abstaining from the tobacco and alcohol use. PLAN OF MANAGEMENT: Proceed with the thoracentesis with ultrasound guidance, which was already assessed at the bedside. After thoracentesis, if any [place], [place] PROGRESS NOTE NAME: NORMA CARTER UNIT #: [id number] ROOM: 6 DOCTOR: SHAUN HAMMER MD,NEHA BIRTHDATE: [birth year] additional change in treatment will be necessary, will be done afterwards. Otherwise, continue current medical management, plan of care. All other supportive therapy, plan of management and care plan. NEHA DUNN MD CM:PNTRANS [phone] NEHA HAMMER MD 12/21/17 0144 interface
--- NOTE | ~2017-12-18 | PR ---
[place], [place] PROGRESS NOTE NAME: NORMA CARTER [facility] #: [id number] UNIT #: [id number] ROOM: 516 DOCTOR: SHAUN HAMMER MDNEHA BIRTHDATE: [birth year] DOS: 12/21/2017 SUBJECTIVE: The patient was noted comfortable at this time, was complaining of some taste, which was described to be metallic in the mouth everyday whenever he eats or drinks any food or liquids. He had thoracentesis completed yesterday. The patient denies symptoms of hemoptysis or chest pain. Shortness breath was noted decreased after the thoracentesis. The pleural fluid sent for all the appropriate testing for this patient as well as yesterday. He has not been noted with symptoms of hemoptysis or abdominal pain. Denies symptoms of nausea or vomiting at the present time or edema of the lower extremity. Remaining systems were reviewed and they were noted all negative. OBJECTIVE: VITAL SIGNS: The patient showed normal temperature, respiratory rate 20, heart rate 98, blood pressure 114/72. The pulse oxygen saturation of the patient recorded as 100% on room air at rest. HEENT: Examination shows no acute changes at this time, temporary loss of muscle mass. The patient noted previously unchanged. Oral mucosa was moist. CARDIOVASCULAR: S1, S2 audible. LUNGS: The patient was noted without any crackles with decreased breaths sounds noted at the right lung base. Improvement in air entry noted from yesterday prior to thoracentesis. ABDOMEN: Soft, nontender with mild ascites. Bowel sounds are present. EXTREMITIES: Without any acute edema. MUSCULOSKELETAL: Without any acute deformities. SKIN: No lesions or rashes. CENTRAL NERVOUS SYSTEM: Cranial nerves 2-12 intact. LABORATORY ANALYSIS: Pleural fluid from yesterday noted with 181 wbc's. Glucose 111, protein of 4.0, LDH 112, pH of 7.42, cholesterol less than 50, albumin 1.8. Based on the albumin and the total protein criteria, the pleural fluid will be considered as lymphocyte predominant exudative pleural fluid. Vancomycin trough level noted at 23.4 yesterday. CBC of this morning, normal WBC count, hemoglobin 11.5, platelet count 104,000 mildly decreased. CMP of the patient, normal BUN and creatinine. Potassium 3.2. AST and ALT for the patient were noted improving. IMPRESSION: 1. The patient who has been noted, status post right-sided thoracentesis. Large volume pleural fluid noted greater than 1000 mL yesterday successfully with lymphocyte predominant exudative effusion, etiology unclear at the present time. 2. Had moderately distended abdomen, may be medication related or other reasons. 3. The patient with liver cirrhosis for the patient with ascites, status post paracentesis as well. PLAN OF MANAGEMENT: Monitor cytology of the pleural fluid as well as the cultures of the chronic infections. Acid fast smear culture was also ordered [place], [place] PROGRESS NOTE NAME: NORMA CARTER UNIT #: [id number] ROOM: 516 DOCTOR: NEHA STONE MD BIRTHDATE: [birth year] for the patient. Continuation of the diuretics, bronchodilators. Deescalate the antibiotics for the patient to hopefully tomorrow once all the culture results will be available. Supportive therapy, plan of management, other care plan. Usual treatment. Additional treatment changes will be made based on progression of the illness. NEHA DUNN MD CM:PNTRANS [id number] NEHA HAMMER MD 12/21/17 1442 interface
[~2017-12-18 19:06] MED LIST changes: +ALDACTONE25 MG PO; +ASPIR-TRIN325 MG PO; +FUROSEMIDE40 MG PO; +PHARMASSURE FO0.4 MG PO; +Vitamin D PO
[2017-12-18 19:07] VITALS: BP 150/98
[2017-12-18 19:40] LABS: BASO # 0.1 10*3/uL (0.0-0.1); BASO % 0.6 % (0.0-1.0); EOS # 0.1 10*3/uL (0.0-0.4); EOS % 0.9 % (1.0-4.0); HEMATOCRIT 42.1 % (42.0-52.0); HEMOGLOBIN 13.6 g/dl (14.0-18.0); LYMPH # 1.9 10*3/uL (1.3-4.4); LYMPH % 20.6 % (27.0-41.0); MEAN CELL VOLUME 97.2 fl (80.0-94.0); MEAN CORPUSCULAR HGB 31.4 pg (27.0-31.0); MEAN CORPUSCULAR HGB CONC 32.3 g/dl (33.0-37.0); MONO # 0.9 10*3/uL (0.1-1.0); MONO % 9.6 % (3.0-9.0); NEUT # 6.3 10*3/uL (2.3-7.9); NEUT % 67.9 % (47.0-73.0); PLATELET COUNT AUTOMATED 140 10*3/uL (130-400); RED BLOOD COUNT 4.33 10*6/uL (4.50-5.90); RED CELL DISTRI WIDTH 13.4 % (0-14.5); WHITE BLOOD COUNT 9.3 10*3/uL (4.8-10.8)
[2017-12-18 19:50] LABS: ACT PARTIAL THROMBO TIME 25.5 SECONDS (20.8-31.5); INTERNATIONAL NORM RATIO 1.2 (2.0-3.5)
[2017-12-18 19:55] LABS: ALBUMIN 2.4 gm/dl (3.1-4.5); ALKALINE PHOSPHATASE 174 U/L (45-117); BUN 15 mg/dl (7-24); CHLORIDE 102 mmol/L (98-107); CREATININE 0.89 mg/dL (0.70-1.30); POTASSIUM 4.6 mmol/L (3.5-5.1); SGOT/AST 78 IU/L (3-35); SGPT/ALT 22 U/L (12-78); SODIUM 136 mmol/L (136-145); TOTAL PROTEIN 7.5 gm/dL (6.4-8.2)
[2017-12-18 20:15] VITALS: BP 123/82
[2017-12-18 22:00] VITALS: BP 113/86
[2017-12-19] VITALS: BP 134/82
[2017-12-19 03:46] LABS: BASO % 0.4 % (0.0-1.0); EOS # 0.1 10*3/uL (0.0-0.4); EOS % 0.9 % (1.0-4.0); HEMATOCRIT 34.8 % (42.0-52.0); HEMOGLOBIN 11.5 g/dl (14.0-18.0); LYMPH # 1.2 10*3/uL (1.3-4.4); LYMPH % 17.9 % (27.0-41.0); MEAN CELL VOLUME 95.6 fl (80.0-94.0); MEAN CORPUSCULAR HGB 31.6 pg (27.0-31.0); MONO # 0.7 10*3/uL (0.1-1.0); MONO % 10.8 % (3.0-9.0); NEUT # 4.7 10*3/uL (2.3-7.9); NEUT % 69.4 % (47.0-73.0); PLATELET COUNT AUTOMATED 109 10*3/uL (130-400); RED BLOOD COUNT 3.64 10*6/uL (4.50-5.90); RED CELL DISTRI WIDTH 13.3 % (0-14.5); WHITE BLOOD COUNT 6.8 10*3/uL (4.8-10.8)
[2017-12-19 04:20] LABS: ALBUMIN 1.9 gm/dl (3.1-4.5); BUN 16 mg/dl (7-24); CHLORIDE 103 mmol/L (98-107); CREATININE 0.78 mg/dL (0.70-1.30); PHOSPHOROUS 3.6 mg/dL (2.5-4.9); POTASSIUM 3.6 mmol/L (3.5-5.1); SGOT/AST 66 IU/L (3-35); SGPT/ALT 18 U/L (12-78); SODIUM 137 mmol/L (136-145)
[2017-12-19 04:21] LABS: ALKALINE PHOSPHATASE 127 U/L (45-117); TOTAL PROTEIN 6.3 gm/dL (6.4-8.2)
[2017-12-19 08:00] VITALS: BP 114/68
[2017-12-19 12:00] VITALS: BP 100/70
[2017-12-19 16:00] VITALS: BP 127/44
[2017-12-19 20:00] VITALS: BP 123/73
[2017-12-20] VITALS: BP 120/76
[2017-12-20 08:00] VITALS: BP 99/66
[2017-12-20 13:00] VITALS: BP 100/58
[2017-12-20 13:05] LABS: BODY FLUID WBC 181 /uL
[2017-12-20 13:42] LABS: BF LYMPHOCYTES 96 %; BF MACROPHAGES 1 %; BF MESOTHELIALS 2 %; BF NEUTROPHILS 1 %
[2017-12-20 16:00] VITALS: BP 85/63
[2017-12-20 20:00] VITALS: BP 97/62
[2017-12-21] VITALS: BP 100/65
[2017-12-21 06:28] LABS: BASO % 0.5 % (0.0-1.0); EOS % 0.5 % (1.0-4.0); HEMATOCRIT 35.6 % (42.0-52.0); HEMOGLOBIN 11.5 g/dl (14.0-18.0); LYMPH # 1.2 10*3/uL (1.3-4.4); LYMPH % 15.4 % (27.0-41.0); MEAN CELL VOLUME 96.5 fl (80.0-94.0); MEAN CORPUSCULAR HGB 31.2 pg (27.0-31.0); MEAN CORPUSCULAR HGB CONC 32.3 g/dl (33.0-37.0); MEAN PLATELET VOLUME 11.6 fl (9.6-12.3); MONO % 12.6 % (3.0-9.0); NEUT # 5.3 10*3/uL (2.3-7.9); NEUT % 70.6 % (47.0-73.0); PLATELET COUNT AUTOMATED 104 10*3/uL (130-400); RED BLOOD COUNT 3.69 10*6/uL (4.50-5.90); RED CELL DISTRI WIDTH 13.6 % (0-14.5); WHITE BLOOD COUNT 7.6 10*3/uL (4.8-10.8)
[2017-12-21 06:52] LABS: ALBUMIN 1.8 gm/dl (3.1-4.5); ALKALINE PHOSPHATASE 125 U/L (45-117); BUN 16 mg/dl (7-24); CHLORIDE 106 mmol/L (98-107); CREATININE 0.97 mg/dL (0.70-1.30); POTASSIUM 3.2 mmol/L (3.5-5.1); SGOT/AST 64 IU/L (3-35); SGPT/ALT 18 U/L (12-78); SODIUM 139 mmol/L (136-145); TOTAL PROTEIN 6.1 gm/dL (6.4-8.2)
[2017-12-21 08:00] VITALS: BP 114/72
[2017-12-21 12:00] VITALS: BP 102/62
[2017-12-21 16:00] VITALS: BP 115/64
[2017-12-21 20:00] VITALS: BP 106/57
[2017-12-22] VITALS: BP 107/60
[2017-12-22 06:38] LABS: BASO % 0.4 % (0.0-1.0); EOS % 0.5 % (1.0-4.0); HEMATOCRIT 35.7 % (42.0-52.0); HEMOGLOBIN 11.4 g/dl (14.0-18.0); LYMPH % 12.1 % (27.0-41.0); MEAN CELL VOLUME 97.5 fl (80.0-94.0); MEAN CORPUSCULAR HGB 31.1 pg (27.0-31.0); MEAN CORPUSCULAR HGB CONC 31.9 g/dl (33.0-37.0); MONO # 1.2 10*3/uL (0.1-1.0); MONO % 13.9 % (3.0-9.0); NEUT # 6.1 10*3/uL (2.3-7.9); NEUT % 72.4 % (47.0-73.0); PLATELET COUNT AUTOMATED 99 10*3/uL (130-400); RED BLOOD COUNT 3.66 10*6/uL (4.50-5.90); RED CELL DISTRI WIDTH 13.7 % (0-14.5); WHITE BLOOD COUNT 8.4 10*3/uL (4.8-10.8)
[2017-12-22 06:51] LABS: ALBUMIN 1.8 gm/dl (3.1-4.5); ALKALINE PHOSPHATASE 136 U/L (45-117); BUN 14 mg/dl (7-24); CHLORIDE 107 mmol/L (98-107); CREATININE 0.92 mg/dL (0.70-1.30); POTASSIUM 3.7 mmol/L (3.5-5.1); SGOT/AST 68 IU/L (3-35); SGPT/ALT 20 U/L (12-78); SODIUM 139 mmol/L (136-145); TOTAL PROTEIN 6.3 gm/dL (6.4-8.2)
[2017-12-22 08:00] VITALS: BP 114/74
[2017-12-22] MEDS ORDERED: NICODERM T (10:07)
[2017-12-22 12:00] VITALS: BP 115/60
[2017-12-22 12:08] LABS: ACID FAST SPEC PROCESSING Concentration (.)
[2017-12-22 16:00] VITALS: BP 113/70
[2017-12-22 20:00] VITALS: BP 104/68
[2017-12-23] VITALS: BP 104/57
[2017-12-23 04:00] VITALS: BP 106/60
[2017-12-23 06:22] LABS: BASO # 0.1 10*3/uL (0.0-0.1); BASO % 0.6 % (0.0-1.0); EOS # 0.1 10*3/uL (0.0-0.4); EOS % 0.7 % (1.0-4.0); HEMATOCRIT 35.6 % (42.0-52.0); HEMOGLOBIN 11.5 g/dl (14.0-18.0); LYMPH # 1.2 10*3/uL (1.3-4.4); LYMPH % 14.6 % (27.0-41.0); MEAN CELL VOLUME 97.3 fl (80.0-94.0); MEAN CORPUSCULAR HGB 31.4 pg (27.0-31.0); MEAN CORPUSCULAR HGB CONC 32.3 g/dl (33.0-37.0); MEAN PLATELET VOLUME 11.5 fl (9.6-12.3); MONO # 1.1 10*3/uL (0.1-1.0); MONO % 12.5 % (3.0-9.0); NEUT # 6.1 10*3/uL (2.3-7.9); PLATELET COUNT AUTOMATED 102 10*3/uL (130-400); RED BLOOD COUNT 3.66 10*6/uL (4.50-5.90); RED CELL DISTRI WIDTH 13.6 % (0-14.5); WHITE BLOOD COUNT 8.5 10*3/uL (4.8-10.8)
[2017-12-23 08:00] VITALS: BP 111/79
[2017-12-23] MEDS ORDERED: DOXYCYCLINE100 M3 PO (10:47)
== END 2017-12-23 11:43 | disposition home or self-care (01) | DRG 871 ==
LOC: ED 19:06 → EDHOLD 20:56 → 5E 20:56
PROVIDERS: Internal Medicine; Internal Medicine Critical Care Medicine; Internal Medicine Hospice and Palliative Medicine; Internal Medicine Nephrology; Student in an Organized Health Care Education/Training Program
PROC: 0W993ZZ Drainage of Right Pleural Cavity, Percutaneous Approach (ICD-10-PCS; principal; 2017-12-20)
DX: A41.9 Sepsis, unspecified organism (principal); E43 Unspecified severe protein-calorie malnutrition; J18.1 Lobar pneumonia, unspecified organism; J90 Pleural effusion, not elsewhere classified; D69.6 Thrombocytopenia, unspecified; K70.31 Alcoholic cirrhosis of liver with ascites; J98.4 Other disorders of lung; D72.810 Lymphocytopenia; D72.821 Monocytosis (symptomatic); D53.9 Nutritional anemia, unspecified; R73.9 Hyperglycemia, unspecified; E55.9 Vitamin D deficiency, unspecified; E53.8 Deficiency of other specified B group vitamins; I10 Essential (primary) hypertension; Y95 Nosocomial condition; F17.210 Nicotine dependence, cigarettes, uncomplicated; H54.40 Blindness, one eye, unspecified eye; F10.10 Alcohol abuse, uncomplicated; Z71.6 Tobacco abuse counseling; Z83.3 Family history of diabetes mellitus; Z79.899 Other long term (current) drug therapy; Z68.20 Body mass index [BMI] 20.0-20.9, adult

== ENCOUNTER → 2017-12-31 | Outpatient (CLI) | payer OTHER ==
[~2017-12-31] MED LIST changes: +DOXYCYCLINE100 M3 PO; +NICODERM T
== END | disposition home or self-care (01) ==
LOC: RESCLI 01:35
DX: Z09 Encounter for follow-up examination after completed treatment for conditions other than malignant neoplasm (principal); K76.89 Other specified diseases of liver; J90 Pleural effusion, not elsewhere classified; K70.31 Alcoholic cirrhosis of liver with ascites; J18.9 Pneumonia, unspecified organism; E55.9 Vitamin D deficiency, unspecified; E53.8 Deficiency of other specified B group vitamins; G47.00 Insomnia, unspecified; K21.9 Gastro-esophageal reflux disease without esophagitis; I10 Essential (primary) hypertension; F17.210 Nicotine dependence, cigarettes, uncomplicated; Z71.6 Tobacco abuse counseling

== ENCOUNTER → 2018-01-08 | Day surgery (SDC) | payer OTHER ==
[2018-01-08 10:55] LABS: ACT PARTIAL THROMBO TIME 25.9 SECONDS (20.8-31.5); INTERNATIONAL NORM RATIO 1.1 (2.0-3.5)
== END | disposition home or self-care (01) ==
PROVIDERS: Internal Medicine
DX: K70.31 Alcoholic cirrhosis of liver with ascites (principal); J90 Pleural effusion, not elsewhere classified; I10 Essential (primary) hypertension; K21.9 Gastro-esophageal reflux disease without esophagitis

== ENCOUNTER → 2018-01-13 | Outpatient (CLI) | payer OTHER | END | disposition home or self-care (01) | LOC: MRI 01:47 | DX: K76.89 Other specified diseases of liver (principal) ==

== ENCOUNTER → 2018-01-16 | Outpatient (CLI) | payer OTHER | END | disposition home or self-care (01) | LOC: CT 00:14 | DX: J69.0 Pneumonitis due to inhalation of food and vomit (principal) ==

== ENCOUNTER → 2018-01-17 | Day surgery (SDC) | payer OTHER | END | disposition home or self-care (01) | DX: R18.8 Other ascites (principal); K74.60 Unspecified cirrhosis of liver ==

== ENCOUNTER → 2018-01-27 | Outpatient (CLI) | payer OTHER ==
[~2018-01-27] MED LIST changes: +LISINOPRIL20 MG PO; +OMEPRAZOLE D/R20 MG PO
[2018-01-27 13:49] LABS: ACT PARTIAL THROMBO TIME 26.7 SECONDS (20.8-31.5); INTERNATIONAL NORM RATIO 1.1 (2.0-3.5)
== END | disposition home or self-care (01) ==
LOC: LAB 02:55 → EDSTATUS 13:30 → LAB 13:30
PROVIDERS: Internal Medicine
DX: R18.8 Other ascites (principal); E55.9 Vitamin D deficiency, unspecified; I10 Essential (primary) hypertension

== ENCOUNTER → 2018-01-29 | Outpatient (CLI) | payer OTHER ==
[2018-01-29] VITALS (8 sets, daily range): BP systolic 76–100; BP diastolic 44–67
[~2018-01-29] MED LIST changes: +ALDACTONE25 M1 PO; +ALEVE220 MG PO; +VISTARIL25 MG PO; +VITAMIN D50000 UNIT PO
== END | disposition home or self-care (01) ==
LOC: LAB 00:01 → EDSTATUS 11:00 → LAB 11:00
DX: J90 Pleural effusion, not elsewhere classified (principal); J45.30 Mild persistent asthma, uncomplicated; J94.8 Other specified pleural conditions; Z87.891 Personal history of nicotine dependence

== ENCOUNTER 2018-02-05 09:29 | Inpatient (IN) | payer OTHER ==
[~2018-02-05] VITALS: Ht 182.9 cm; Wt 66.9 kg
[2018-02-05] VITALS (8 sets, daily range): BP systolic 86–125; BP diastolic 52–74
--- NOTE | ~2018-02-05 | PR ---
[place], [place] PROGRESS NOTE NAME: NORMA CARTER UNIT #: [id number] ROOM: 428 DOCTOR: LANCE LEWIS MD BIRTHDATE: [birth year] DOS: 02/08/2018 SUBJECTIVE: The patient was seen and examined. He is awake and alert. He is lying in bed. He is on room air. Denied any complaints. Denies shortness of breath, nausea or vomiting. He states to me he wants to go home. PHYSICAL EXAMINATION: VITAL SIGNS: Showed temperature 98, pulse 100, respiratory rate 18, blood pressure 110/54. HEENT: Shows no JVD. LUNGS: Fairly clear. HEART: Normal S1, S2. No rub, thrill or gallop. ABDOMEN: Soft, nontender. There is organomegaly. EXTREMITIES: Showed no edema. SKIN: Showed no rash. LABORATORY DATA: Sodium 146, potassium 4.4, CO2 of 17, calcium 9.0, phosphorus 3.4, albumin 3.5, BUN 57, creatinine of 1.2. Improvement from yesterday's labs, BUN of 80 and creatinine of 2.7. ASSESSMENT AND PLAN: 1. Acute kidney injury, which is resolving. The patient has been on IV fluids. Can likely discontinue this soon. He seems to be on normal saline. With his metabolic acidosis, would consider changing to half normal saline with 75 mEq of bicarbonate while in the hospital. He had mild hypernatremia noted. Would increase oral fluid intake. 2. Anemia. Follow hemoglobin and hematocrit and transfuse as needed. 3. History of cirrhosis of the liver with ascites. Continue supportive care. From renal standpoint, the patient is improving and he is acceptable for discharge. We will sign off for now. Please call if needed again. LANCE LEWIS MD CM:PNTRANS [phone] LANCE LEWIS MD 02/08/189 interface
--- NOTE | ~2018-02-05 | CON ---
[place], [place] REPORT OF CONSULTATION NAME: NORMA CARTER [facility] #: [id number] UNIT #: [id number] ROOM: 428 DOCTOR: SHAUN HAMMER MDNEHA BIRTHDATE: [birth year] DOS: 02/07/2018 PULMONARY CONSULTATION, EVALUATION AND MANAGEMENT CONSULTATION REQUESTED BY: Hospitalist services. REASON FOR CONSULTATION: For assessment of the pleural fluid with pleural catheter in place and other issues. HISTORY OF PRESENT ILLNESS: This is a 57-year-old white male patient known to me with history of an exudative pleural fluid, noted recurrent in the right chest. The patient has a recent PleurX catheter, which was inserted in the right chest that has been changed intermittently as an outpatient. The patient states the last time fluid drained was on of this month, only small amount. He has been admitted to the hospital under the hospitalist service on 02/05/2018. The patient came to the hospital, noted with hypotension with dizziness upon standing. The patient was sent to the Emergency Room for further assessment. The patient denies any symptoms of any chest pain. Denies symptoms of hemoptysis. He has not been noted any history of fall, but dizziness and fatigue was noted. The patient was noted with acute kidney injury with elevation of creatinine. He has not been noted any symptoms of acute shortness of breath at this time. There was no coughing, wheezing or any acute chest pain reported by the patient. REVIEW OF SYSTEMS: CONSTITUTIONAL: Fatigue and tiredness were noted without any symptoms of fever or chills. EYES: Denies any burning, redness, or tenderness. EARS, NOSE, THROAT SYMPTOMS: Denies sore throat, hoarseness, otalgia, postnasal drainage, or epistaxis. CARDIOVASCULAR: Denies angina pain, edema, pain of the lower extremities. GASTROINTESTINAL: Dysphagia, nausea, vomiting, diarrhea, abdominal pain, hematemesis, melena, or hematochezia. The patient was noted with abdominal ascites, which required paracentesis intermittently on the outpatient basis mostly. GENITOURINARY: No dysuria, suprapubic pain, or oracio hematuria. MUSCULOSKELETAL: No acute joint pain, redness, or tenderness. SKIN: The patient denies any abnormal lesions or rashes. MUSCULOSKELETAL: There were no symptoms of acute joint pain. CENTRAL NERVOUS SYSTEM: Current dizziness reported. There were no symptoms of seizures. Remaining systems were reviewed. They were noted all negative. PAST MEDICAL HISTORY: 1. Noted with alcoholic liver cirrhosis with ascites and other abnormality for coagulation as well as thrombocytopenia related to liver cirrhosis. 2. Chronic blindness of the right eye. 3. Essential hypertension. 4. Folate deficiency. [place], [place] REPORT OF CONSULTATION NAME: NORMA CARTER UNIT #: [id number] ROOM: 428 DOCTOR: SHAUN HAMMER MD,NEHA BIRTHDATE: [birth year] 5. History of alcohol dependence, which has been discontinued by the patient. 6. Vitamin D deficiency. SOCIAL HISTORY: The patient is , has 2 children, lives at home. Smoking started as a teenager, 2 packs of cigarettes per day that has been discontinued by the patient. He used to drink quite a bit of alcohol, whiskey and vodka, 1 quarter of a gallon daily, which has been discontinued, I believe about a month ago. PAST SURGICAL HISTORY: 1. Paracentesis several times, the last one done on the . 2. Thoracentesis, I performed this on 12/20/2017. It was noted as an exudative effusion. FAMILY HISTORY: Father at 80 years of complication of diabetes. Mother at age of 8080 years old from old age. CURRENT MEDICATIONS: Administered noted use of vitamin D, intravenous fluids, folic acid, hydroxyzine, nicotine replacement patches, magnesium hydroxide, Rocephin, and other p.r.n. medications administration. DRUG ALLERGIES: No known drug allergies. PHYSICAL EXAMINATION: GENERAL: This 57-year-old male who has been noted currently awake and alert without acute distress who has been noted without any pain or other symptoms at the present time. VITAL SIGNS: Height were recorded by the nursing staff on admission, 6 feet, weight of 140 pounds, BMI 18.5. Vital signs, which has been recorded on admission were noted with a blood pressure of 86/57, respiratory rate of 19, heart rate 61, temperature normal. The blood pressure noted this morning is 97/65, heart rate 77, respiratory rate 20, temperature was normal. The pulse oxygen saturation on room air was noted 98-100% saturation. HEENT: Head was atraumatic. Eyes nonicterus. NECK: Supple. The patient appeared to be better as assessed today. However, temporal muscle mass loss was still noted. The mucosa was moist. CARDIOVASCULAR: S1, S2 audible. LUNGS: The patient was noted without any wheezing or crackles. ABDOMEN: Soft, nontender without any evidence of significant ascites at this time. Bowel sounds present. EXTREMITIES: Noted without any acute edema. MUSCULOSKELETAL: With chronic deformities. CENTRAL NERVOUS SYSTEM: Cranial nerves 2-12 intact. No focal deficit. LABORATORY DATA: Lactic acid noted on admission 02/05/2018, normal. CBC on admission, hemoglobin 13, hematocrit 41.1, WBC count normal, and platelet count were normal. CMP on the , BUN 95, creatinine 3.39, glucose 107, potassium 5.3, CO2 of 15. AST 114. ALT was normal. The chest x-ray that was done on 02/05/2018 was noted. Chest tube remains in place. A pleural catheter with a small left pleural fluid. There was no significant right pleural fluid was [place], [place] REPORT OF CONSULTATION NAME: NORMA CARTER UNIT #: [id number] ROOM: [facility] DOCTOR: SHAUN HAMMER MD,[facility] BIRTHDATE: [birth year] seen. Blood culture on showed no bacterial growths. Renal function panel today, BUN 80, creatinine 2.17. CO2 of 17. IMPRESSION: 1. The patient will be currently admitted to the hospital noted with intravascular volume depletion resulting in hypotension. Also developed acute kidney injury, most likely secondary to that and the possibility of acute tubular necrosis as well. 2. History of known liver cirrhosis secondary to alcoholism. The patient has not been smoking any cigarettes. 3. Mild intermittent bronchial asthma as well by history. 4. Recurrent pleural fluid, which has been responding to the treatment very well with the thoracentesis intermittently during the week. PLAN OF MANAGEMENT: Continue draining the pleural fluid 3 times a week, could be cut to twice a week, if the fluid quantity was noted smaller less than 150 mL. Continuation of bronchodilators, oxygen supplementation, and medical management of acute kidney injury. Nephrology Service was continued with intravenous fluid administration. Other supportive plan of management to be continued. Additional treatment changes will be made based on progression of the illness. Repeat chest x-ray will be done in the morning to reassess any interval development of new pleural fluid formation. NEHA DUNN MD CM:CONSTR:REPORT OF CONSULTATION 1737 02/08/18 0240 interface
--- NOTE | ~2018-02-05 | PR ---
[place], [place] PROGRESS NOTE NAME: NORMA CARTER UNIT #: [id number] ROOM: 428 DOCTOR: NEHA STONE MD BIRTHDATE: [birth year] DOS: 02/08/2018 PULMONARY PROGRESS NOTE SUBJECTIVE: He has been noted comfortable without any acute distress. The patient's hypotension has been resolved markedly in the last 24 hours. Denies symptoms of chest pain or abdominal pain. There was no coughing or sputum expectoration. PHYSICAL EXAMINATION: VITAL SIGNS: Vital signs for the patient, normal temperature this morning, respiratory rate 18, heart rate 96, and blood pressure 114/57. The pulse oxygen saturation noted as 99% saturation on room air. HEENT: Examination shows head was atraumatic. Eyes nonicterus. NECK: Supple. CARDIOVASCULAR SYSTEM: S1, S2 audible. LUNGS: The patient was noted without any wheezing or crackles at present time. ABDOMEN: Soft and nontender. Bowel sounds present. EXTREMITIES: Without any acute edema. LABORATORY DATA: Chest x-ray this morning was noted with bilateral pleural fluid noted with increased fluid formation in the right chest. IMPRESSION: 1. The patient with recurrent pleural fluid was noted sedated with the chest tube in place without any evidence of malignancy. 2. History of liver cirrhosis. 3. Hypotension secondary to hypovolemia, seem to be improving. The patient is currently getting intravenous infusion of the albumin. PLAN OF MANAGEMENT: No changes from the pulmonary standpoint. Drainage of pleural fluid on Saturday, Saturday, and Saturday through the PleurX catheter. Other supportive plan of management as in progress. [place], [place] PROGRESS NOTE NAME: NORMA CARTER UNIT #: [id number] ROOM: 428 DOCTOR: NEHA STONE MD BIRTHDATE: [birth year] NEHA DUNN MD CM:PNTRANS [id number] NHEA HAMMER MD 02/08/18 2304 interface
--- NOTE | ~2018-02-05 | PR ---
[place], [place] PROGRESS NOTE NAME: NORMA CARTER UNIT #: [id number] ROOM: 428 DOCTOR: SHAUN HAMMER MD,NEHA BIRTHDATE: [birth year] DOS: 02/09/2018 PULMONARY PROGRESS NOTE SUBJECTIVE: The patient has been noted comfortable at this time. Has not been noted any symptoms of chest pain or hemoptysis. Drainage was done through the right PleurX catheter by 1000 mL this morning. OBJECTIVE: VITAL SIGNS: Showed normal temperature, respiratory rate 18, heart rate of 60, blood pressure ____/88. Pulse oxygen saturation recorded on room air 94% saturation. HEENT: Head was atraumatic. Eyes nonicterus. NECK: Supple. CARDIOVASCULAR: S1, S2 audible. LUNGS: The patient was noted without any wheezing or crackles at this time. ABDOMEN: Soft, nontender. EXTREMITIES: Without acute edema. LABORATORY DATA: BMP today: BUN 33, creatinine was normal. Sodium 148. The CBC of the patient this morning, hemoglobin 10.9, platelet count 109,000, mildly decreased with normal WBC count. IMPRESSION: 1. The patient who has currently noted stable at the present time with recurrent right pleural fluid which has been drained with the PleurX catheter ____. 2. Resolution of hypotension. PLAN OF MANAGEMENT: The patient could be considered home discharge. Drainage of the PleurX catheter to be continued as an outpatient for this patient 3 times a week. Usual care. NEHA DUNN MD CM:PNTRANS [phone] NEHA HAMMER MD 02/10/18 0148 interface
[~2018-02-05 09:29] MED LIST changes: -ALDACTONE25 M1 PO; -ALEVE220 MG PO; -VISTARIL25 MG PO; -VITAMIN D50000 UNIT PO
[2018-02-05 09:56] LABS: BASO # 0.1 10*3/uL (0.0-0.1); BASO % 0.6 % (0.0-1.0); EOS # 0.2 10*3/uL (0.0-0.4); EOS % 1.9 % (1.0-4.0); HEMATOCRIT 41.1 % (42.0-52.0); LYMPH # 1.7 10*3/uL (1.3-4.4); LYMPH % 18.8 % (27.0-41.0); MEAN CELL VOLUME 95.8 fl (80.0-94.0); MEAN CORPUSCULAR HGB 30.3 pg (27.0-31.0); MEAN CORPUSCULAR HGB CONC 31.6 g/dl (33.0-37.0); MEAN PLATELET VOLUME 11.3 fl (9.6-12.3); MONO # 0.9 10*3/uL (0.1-1.0); MONO % 10.3 % (3.0-9.0); NEUT # 6.1 10*3/uL (2.3-7.9); NEUT % 67.7 % (47.0-73.0); PLATELET COUNT AUTOMATED 225 10*3/uL (130-400); RED BLOOD COUNT 4.29 10*6/uL (4.50-5.90); RED CELL DISTRI WIDTH 16.3 % (0-14.5); WHITE BLOOD COUNT 9.1 10*3/uL (4.8-10.8)
[2018-02-05 10:04] LABS: ACT PARTIAL THROMBO TIME 29.9 SECONDS (20.8-31.5); INTERNATIONAL NORM RATIO 1.1 (2.0-3.5)
[2018-02-05 10:13] LABS: ALBUMIN 2.2 gm/dl (3.1-4.5); ALKALINE PHOSPHATASE 241 U/L (45-117); BUN 95 mg/dl (7-24); CHLORIDE 112 mmol/L (98-107); CREATININE 3.39 mg/dL (0.70-1.30); POTASSIUM 5.3 mmol/L (3.5-5.1); SGOT/AST 114 IU/L (3-35); SGPT/ALT 52 U/L (12-78); SODIUM 140 mmol/L (136-145); TOTAL PROTEIN 8.5 gm/dL (6.4-8.2)
[2018-02-05 10:14] LABS: TROPONIN I < 0.015 ng/ml (<0.045)
[2018-02-05] MEDS ORDERED: ALEVE220 MG PO (13:14)
[2018-02-05] MEDS ORDERED: VITAMIN D50000 UNIT PO (13:16)
[2018-02-05] MEDS ORDERED: ALDACTONE25 M1 PO (13:16)
[2018-02-05] MEDS ORDERED: VISTARIL25 MG PO (13:16)
[2018-02-05 15:30] LABS: BILIRUBIN NEGATIVE (NEGATIVE); BLOOD NEGATIVE (NEGATIVE); CLARITY SL CLOUDY (CLEAR); COLOR YELLOW (YELLOW); GLUCOSE NEGATIVE (NEGATIVE); KETONE NEGATIVE (NEGATIVE); LEUKO ESTERASE NEGATIVE (NEGATIVE); NITRITE NEGATIVE (NEGATIVE); UROBILINOGEN 0.2 E.U./dl (0.2-1.0)
[2018-02-05 15:38] LABS: BACTERIA TRACE; MUCOUS 2+
[2018-02-05 15:40] LABS: EPITHELIAL CELLS 16-20
[2018-02-06] VITALS: BP 98/60
[2018-02-06 08:00] VITALS: BP 100/60
[2018-02-06 08:10] LABS: BASO # 0.1 10*3/uL (0.0-0.1); BASO % 0.6 % (0.0-1.0); EOS # 0.2 10*3/uL (0.0-0.4); EOS % 1.9 % (1.0-4.0); HEMATOCRIT 40.1 % (42.0-52.0); HEMOGLOBIN 12.3 g/dl (14.0-18.0); LYMPH # 2.3 10*3/uL (1.3-4.4); LYMPH % 25.8 % (27.0-41.0); MEAN CELL VOLUME 97.6 fl (80.0-94.0); MEAN CORPUSCULAR HGB 29.9 pg (27.0-31.0); MEAN CORPUSCULAR HGB CONC 30.7 g/dl (33.0-37.0); MEAN PLATELET VOLUME 11.7 fl (9.6-12.3); NEUT # 5.4 10*3/uL (2.3-7.9); NEUT % 60.1 % (47.0-73.0); PLATELET COUNT AUTOMATED 220 10*3/uL (130-400); RED BLOOD COUNT 4.11 10*6/uL (4.50-5.90); RED CELL DISTRI WIDTH 16.4 % (0-14.5)
[2018-02-06 08:21] LABS: CREATININE 3.27 mg/dL (0.70-1.30); POTASSIUM 4.7 mmol/L (3.5-5.1)
[2018-02-06 08:29] LABS: THYROID STIM HORMONE (HS) 9.95 uIU/ml (0.358-4.75)
[2018-02-06 08:40] LABS: ACT PARTIAL THROMBO TIME 29.9 SECONDS (20.8-31.5); INTERNATIONAL NORM RATIO 1.1 (2.0-3.5)
[2018-02-06 09:17] LABS: VITAMIN D, 25-HYDROXY 29.1 ng/mL (30-100)
[2018-02-06 12:00] VITALS: BP 139/94
[2018-02-06 12:25] LABS: BODY FLUID WBC 253 /uL
[2018-02-06 12:58] LABS: BF LYMPHOCYTES 19 %; BF MACROPHAGES 68 %; BF MESOTHELIALS 9 %; BF NEUTROPHILS 4 %
[2018-02-06 16:00] VITALS: BP 100/67
[2018-02-06 20:00] VITALS: BP 98/54
[2018-02-07] VITALS: BP 92/54
[2018-02-07 07:22] LABS: BASO % 0.7 % (0.0-1.0); EOS # 0.1 10*3/uL (0.0-0.4); EOS % 2.1 % (1.0-4.0); HEMOGLOBIN 10.3 g/dl (14.0-18.0); LYMPH # 1.2 10*3/uL (1.3-4.4); MEAN CELL VOLUME 96.2 fl (80.0-94.0); MEAN CORPUSCULAR HGB 29.9 pg (27.0-31.0); MEAN CORPUSCULAR HGB CONC 31.1 g/dl (33.0-37.0); MEAN PLATELET VOLUME 11.7 fl (9.6-12.3); MONO # 0.8 10*3/uL (0.1-1.0); MONO % 14.3 % (3.0-9.0); NEUT # 3.6 10*3/uL (2.3-7.9); NEUT % 61.4 % (47.0-73.0); RED BLOOD COUNT 3.44 10*6/uL (4.50-5.90); RED CELL DISTRI WIDTH 16.2 % (0-14.5); WHITE BLOOD COUNT 5.8 10*3/uL (4.8-10.8)
[2018-02-07 07:23] LABS: HEMATOCRIT 33.1 % (42.0-52.0)
[2018-02-07 07:24] LABS: PLATELET COUNT AUTOMATED 119 10*3/uL (130-400)
[2018-02-07 07:44] LABS: ALBUMIN 2.9 gm/dl (3.1-4.5); CREATININE 2.17 mg/dL (0.70-1.30); PHOSPHOROUS 5.6 mg/dL (2.5-4.9)
[2018-02-07 08:00] VITALS: BP 97/65
[2018-02-07 12:20] VITALS: BP 104/63
[2018-02-07 18:00] VITALS: BP 104/63
[2018-02-07 20:00] VITALS: BP 122/63
[2018-02-08] VITALS: BP 122/68
[2018-02-08 06:33] LABS: ALBUMIN 3.5 gm/dl (3.1-4.5); CHLORIDE 122 mmol/L (98-107); CREATININE 1.24 mg/dL (0.70-1.30); PHOSPHOROUS 3.4 mg/dL (2.5-4.9); POTASSIUM 4.4 mmol/L (3.5-5.1); SODIUM 146 mmol/L (136-145)
[2018-02-08 06:38] LABS: BUN 57 mg/dl (7-24)
[2018-02-08 08:00] VITALS: BP 114/67
[2018-02-08 12:00] VITALS: BP 110/54
[2018-02-08 16:00] VITALS: BP 119/55
[2018-02-08 20:00] VITALS: BP 143/72
[2018-02-09] VITALS: BP 149/85
[2018-02-09 04:00] VITALS: BP 130/82
[2018-02-09 06:13] LABS: BASO % 0.6 % (0.0-1.0); EOS # 0.1 10*3/uL (0.0-0.4); EOS % 1.9 % (1.0-4.0); HEMATOCRIT 34.2 % (42.0-52.0); HEMOGLOBIN 10.9 g/dl (14.0-18.0); LYMPH # 1.4 10*3/uL (1.3-4.4); LYMPH % 19.3 % (27.0-41.0); MEAN CELL VOLUME 94.5 fl (80.0-94.0); MEAN CORPUSCULAR HGB 30.1 pg (27.0-31.0); MEAN CORPUSCULAR HGB CONC 31.9 g/dl (33.0-37.0); MEAN PLATELET VOLUME 11.1 fl (9.6-12.3); MONO # 0.9 10*3/uL (0.1-1.0); MONO % 12.4 % (3.0-9.0); NEUT # 4.8 10*3/uL (2.3-7.9); NEUT % 65.2 % (47.0-73.0); PLATELET COUNT AUTOMATED 109 10*3/uL (130-400); RED BLOOD COUNT 3.62 10*6/uL (4.50-5.90); RED CELL DISTRI WIDTH 16.3 % (0-14.5); WHITE BLOOD COUNT 7.3 10*3/uL (4.8-10.8)
[2018-02-09 06:42] LABS: ALBUMIN 3.4 gm/dl (3.1-4.5); CHLORIDE 123 mmol/L (98-107); CREATININE 0.87 mg/dL (0.70-1.30); PHOSPHOROUS 2.6 mg/dL (2.5-4.9); POTASSIUM 4.1 mmol/L (3.5-5.1); SODIUM 148 mmol/L (136-145)
[2018-02-09 06:46] LABS: BUN 33 mg/dl (7-24)
[2018-02-09 08:00] VITALS: BP 131/77
[2018-02-09 12:00] VITALS: BP 145/88
== END 2018-02-09 16:05 | disposition home health service (06) | DRG 314 ==
LOC: ED 09:29 → 4E 10:43 → EDHOLD 10:43 → 4E 10:59
PROVIDERS: Emergency Medicine; Internal Medicine; Registered Nurse
PROC: 0W9G3ZZ Drainage of Peritoneal Cavity, Percutaneous Approach (ICD-10-PCS; principal; 2018-02-06)
DX: I95.9 Hypotension, unspecified (principal); E43 Unspecified severe protein-calorie malnutrition; N17.0 Acute kidney failure with tubular necrosis; J90 Pleural effusion, not elsewhere classified; K65.2 Spontaneous bacterial peritonitis; E87.0 Hyperosmolality and hypernatremia; E87.2 Acidosis; Z68.1 Body mass index [BMI] 19.9 or less, adult; K70.31 Alcoholic cirrhosis of liver with ascites; E87.5 Hyperkalemia; J45.20 Mild intermittent asthma, uncomplicated; E86.1 Hypovolemia; E55.9 Vitamin D deficiency, unspecified; E53.8 Deficiency of other specified B group vitamins; H54.61 Unqualified visual loss, right eye, normal vision left eye; R16.0 Hepatomegaly, not elsewhere classified; R74.0 Nonspecific elevation of levels of transaminase and lactic acid dehydrogenase [LDH]; D53.9 Nutritional anemia, unspecified; F17.210 Nicotine dependence, cigarettes, uncomplicated; E87.8 Other disorders of electrolyte and fluid balance, not elsewhere classified; I10 Essential (primary) hypertension; Z87.01 Personal history of pneumonia (recurrent); Z83.3 Family history of diabetes mellitus; Z79.899 Other long term (current) drug therapy; Z71.6 Tobacco abuse counseling

== ENCOUNTER → 2018-02-12 | Outpatient (CLI) | payer OTHER ==
[~2018-02-12] MED LIST changes: +ALDACTONE25 M1 PO; +ALEVE220 MG PO; +PROVENTIL HFA6.7 GM INH; +QVAR8.7 GM INH; +VISTARIL25 MG PO; +VITAMIN D50000 UNIT PO
== END | disposition home or self-care (01) ==
LOC: RESCLI 03:14
DX: Z09 Encounter for follow-up examination after completed treatment for conditions other than malignant neoplasm (principal); G47.00 Insomnia, unspecified; I10 Essential (primary) hypertension; K21.9 Gastro-esophageal reflux disease without esophagitis; E53.8 Deficiency of other specified B group vitamins; E55.9 Vitamin D deficiency, unspecified; K70.31 Alcoholic cirrhosis of liver with ascites; R59.1 Generalized enlarged lymph nodes; J91.8 Pleural effusion in other conditions classified elsewhere; K76.9 Liver disease, unspecified; F17.210 Nicotine dependence, cigarettes, uncomplicated; Z71.6 Tobacco abuse counseling

== ENCOUNTER → 2018-02-13 | Outpatient (CLI) | payer OTHER | END | disposition home or self-care (01) | LOC: EDSTATUS 11:00 | DX: R18.8 Other ascites (principal); K70.30 Alcoholic cirrhosis of liver without ascites ==

== ENCOUNTER → 2018-02-20 | Outpatient (CLI) | payer OTHER | END | disposition home or self-care (01) | LOC: EDSTATUS 13:00 | DX: K70.31 Alcoholic cirrhosis of liver with ascites (principal); I10 Essential (primary) hypertension; K21.9 Gastro-esophageal reflux disease without esophagitis; G47.00 Insomnia, unspecified; Z79.899 Other long term (current) drug therapy ==

== ENCOUNTER → 2018-02-26 | Outpatient (CLI) | payer OTHER ==
[2018-02-26 10:39] LABS: ACT PARTIAL THROMBO TIME 26.8 SECONDS (20.8-31.5); INTERNATIONAL NORM RATIO 1.1 (2.0-3.5)
== END | disposition home or self-care (01) ==
LOC: LAB 00:22
PROVIDERS: Internal Medicine
DX: R18.8 Other ascites (principal)

== ENCOUNTER → 2018-02-27 | Day surgery (SDC) | payer OTHER ==
[2018-02-27] VITALS (8 sets, daily range): BP systolic 88–106; BP diastolic 45–69
== END | disposition home or self-care (01) ==
LOC: CANPRESDC → SDC 02-25 11:00
DX: K70.31 Alcoholic cirrhosis of liver with ascites (principal); R59.0 Localized enlarged lymph nodes; N28.89 Other specified disorders of kidney and ureter; I10 Essential (primary) hypertension; K21.9 Gastro-esophageal reflux disease without esophagitis; F17.210 Nicotine dependence, cigarettes, uncomplicated; Z79.899 Other long term (current) drug therapy

== ENCOUNTER → 2018-03-04 | Outpatient (CLI) | payer OTHER | END | disposition home or self-care (01) | LOC: RESCLI 04:40 | DX: I10 Essential (primary) hypertension (principal); C79.9 Secondary malignant neoplasm of unspecified site; K21.9 Gastro-esophageal reflux disease without esophagitis; D64.9 Anemia, unspecified; E53.8 Deficiency of other specified B group vitamins; E55.9 Vitamin D deficiency, unspecified; G47.00 Insomnia, unspecified; K70.31 Alcoholic cirrhosis of liver with ascites; J44.9 Chronic obstructive pulmonary disease, unspecified; J91.8 Pleural effusion in other conditions classified elsewhere; R16.1 Splenomegaly, not elsewhere classified; Z71.6 Tobacco abuse counseling; Z98.890 Other specified postprocedural states ==

== ENCOUNTER → 2018-03-06 | Outpatient (CLI) | payer OTHER | END | disposition home or self-care (01) | LOC: EDSTATUS 11:00 | DX: K70.31 Alcoholic cirrhosis of liver with ascites (principal) ==

== ENCOUNTER 2018-03-09 19:43 | Emergency (ER) | payer OTHER ==
[~2018-03-09] VITALS: Wt 49.9 kg
--- NOTE | ~2018-03-09 | EKG ---
[place], [place] ELECTROCARDIOGRAM REPORT NAME: NORMA CARTER UNIT #: [id number] ROOM: DOCTOR: SHAUN HAMMER MD,NEHA BIRTHDATE: [birth year] DOS: 03/09/2018 ELECTROCARDIOGRAM TIME: 08:12 p.m. FINDINGS: Shows normal sinus rhythm. Heart rate 92 beats per minute. Possible left atrial enlargement, would be considered. Nonspecific ST changes were present in the inferior leads. NEHA DUNN MD CM:EKGRPT:ELECTROCARDIOGRAM REPORT [id number] NEHA HAMMER MD
[2018-03-09 20:15] LABS: HEMATOCRIT 33.6 % (42.0-52.0); HEMOGLOBIN 10.8 g/dl (14.0-18.0); MEAN CELL VOLUME 93.3 fl (80.0-94.0); MEAN CORPUSCULAR HGB CONC 32.1 g/dl (33.0-37.0); MEAN PLATELET VOLUME 10.6 fl (9.6-12.3); PLATELET COUNT AUTOMATED 174 10*3/uL (130-400); WHITE BLOOD COUNT 11.4 10*3/uL (4.8-10.8)
[2018-03-09 20:26] LABS: ACT PARTIAL THROMBO TIME 29.9 SECONDS (20.8-31.5); INTERNATIONAL NORM RATIO 1.2 (2.0-3.5)
[2018-03-09 20:34] LABS: ALBUMIN 1.6 gm/dl (3.1-4.5); ALKALINE PHOSPHATASE 247 U/L (45-117); BUN 103 mg/dl (7-24); CHLORIDE 107 mmol/L (98-107); PLATELET SUFFICIENCY NORMAL (NORMAL); SGOT/AST 64 IU/L (3-35); SGPT/ALT 25 U/L (12-78); SODIUM 135 mmol/L (136-145); TOTAL CELLS COUNTED 100 #CELLS; TOTAL PROTEIN 6.9 gm/dL (6.4-8.2)
[2018-03-09 20:35] LABS: BURR CELLS FEW
[2018-03-09 20:50] LABS: TROPONIN I < 0.015 ng/ml (<0.045)
[2018-03-09 22:56] LABS: CREATININE 6.56 mg/dL (0.70-1.30)
[2018-03-09 23:00] LABS: POTASSIUM 5.9 mmol/L (3.5-5.1)
== END 2018-03-09 23:29 | disposition short-term general hospital (02) ==
LOC: ED 19:43
PROVIDERS: Student in an Organized Health Care Education/Training Program
DX: R57.9 Shock, unspecified (principal); E87.5 Hyperkalemia; I10 Essential (primary) hypertension; Z79.899 Other long term (current) drug therapy

== ENCOUNTER → 2018-03-18 | Day surgery (SDC) | payer OTHER ==
[~2018-03-18] MED LIST changes: +ALBUTEROL0.63 MG/3 INH; +CIPRO500 MG PO; +GAVISCON 80-141 EACH PO; +HM SUPER VITA400 MCG PO; +KALEXATE15 GM PO; +MIDODRINE HCL5 M1 PO; +MORPHINE SULFAT30 M6 PO; +PANTOPRAZOLE SO40 MG PO; +QVAR REDIHALE10.6 GM INH
== END | disposition home or self-care (01) ==
DX: K70.31 Alcoholic cirrhosis of liver with ascites (principal)

== ENCOUNTER → 2018-03-25 | Day surgery (SDC) | payer OTHER | DX: K70.31 Alcoholic cirrhosis of liver with ascites (principal) ==

== ENCOUNTER → 2018-03-25 | Outpatient (CLI) | payer OTHER | LOC: RESCLI 03:21 | DX: Z09 Encounter for follow-up examination after completed treatment for conditions other than malignant neoplasm (principal); C79.9 Secondary malignant neoplasm of unspecified site; K21.9 Gastro-esophageal reflux disease without esophagitis; E53.8 Deficiency of other specified B group vitamins; E55.9 Vitamin D deficiency, unspecified; J91.8 Pleural effusion in other conditions classified elsewhere; G47.00 Insomnia, unspecified; K70.31 Alcoholic cirrhosis of liver with ascites; J44.9 Chronic obstructive pulmonary disease, unspecified; R60.9 Edema, unspecified; I95.9 Hypotension, unspecified; A41.9 Sepsis, unspecified organism; Z98.890 Other specified postprocedural states; F17.210 Nicotine dependence, cigarettes, uncomplicated; Z71.6 Tobacco abuse counseling ==

== ENCOUNTER → 2018-04-02 | Day surgery (SDC) | payer OTHER | END | disposition home or self-care (01) | LOC: RAD 03-26 11:00 | DX: R18.8 Other ascites (principal) ==

== ENCOUNTER → 2018-04-08 | Day surgery (SDC) | payer OTHER ==
[2018-04-08 12:20] VITALS: BP 132/68
== END | disposition home or self-care (01) ==
LOC: US 11:00
DX: R18.8 Other ascites (principal)

== ENCOUNTER → 2018-04-14 | Outpatient (CLI) | payer OTHER ==
--- NOTE | ~2018-04-14 | EKG ---
[place], [place] ELECTROCARDIOGRAM REPORT NAME: NORMA CARTER UNIT #: [id number] ROOM: DOCTOR: EPIPHANY DRAFT REPORT BIRTHDATE: [address] [facility] Test Date: 2018-04-14 Test Time: 13:07:41 Pat Name: NORMA CARTER Department: Room: Gender: M [employer]ining Service Worker: : 1960 Requested By: RONNY AKHTAR Order Number: [id number] Reading MD: Measurements Intervals [place] Rate: 106 P: 68 GA: 119 QRS: 14 QRSD: 80 T: 55 QT: 333 QTc: 443 Interpretive Statements Sinus tachycardia Probable left atrial enlargement Baseline wander in lead(s) V6 Compared to ECG 04/10/2018 00:36:07 Sinus rhythm no longer present CM:EKGRPT:ELECTROCARDIOGRAM REPORT 1307 [id number] RONNY AKHTAR MD EPIPHANY DRAFT REPORT RONNY AKHTAR MD
[2018-04-14 13:33] LABS: HEMATOCRIT 37.3 % (42.0-52.0); HEMOGLOBIN 12.2 g/dl (14.0-18.0); MEAN CELL VOLUME 88.2 fl (80.0-94.0); MEAN CORPUSCULAR HGB 28.8 pg (27.0-31.0); MEAN CORPUSCULAR HGB CONC 32.7 g/dl (33.0-37.0); MEAN PLATELET VOLUME 10.6 fl (9.6-12.3); RED BLOOD COUNT 4.23 10*6/uL (4.50-5.90); RED CELL DISTRI WIDTH 15.5 % (0-14.5); WHITE BLOOD COUNT 17.6 10*3/uL (4.8-10.8)
[2018-04-14 13:54] LABS: CREATININE 2.75 mg/dL (0.70-1.30); POTASSIUM 3.8 mmol/L (3.5-5.1)
== END | disposition home or self-care (01) ==
LOC: LAB 08:16 → RESCLI 08:16
PROVIDERS: Internal Medicine
DX: E78.5 Hyperlipidemia, unspecified (principal); N17.9 Acute kidney failure, unspecified

== ENCOUNTER → 2018-04-15 | Outpatient (CLI) | payer OTHER | END | disposition home or self-care (01) | LOC: EDSTATUS 13:30 | DX: K70.31 Alcoholic cirrhosis of liver with ascites (principal); I12.9 Hypertensive chronic kidney disease with stage 1 through stage 4 chronic kidney disease, or unspecified chronic kidney disease; N18.3 Chronic kidney disease, stage 3 (moderate); N17.0 Acute kidney failure with tubular necrosis; C79.9 Secondary malignant neoplasm of unspecified site; D64.9 Anemia, unspecified ==

== ENCOUNTER → 2018-04-22 | Outpatient (CLI) | payer OTHER ==
[2018-04-22 12:05] VITALS: BP 85/54
[2018-04-22 12:49] VITALS: BP 94/58
[2018-04-22 13:18] LABS: BASO % 0.1 % (0.0-1.0); EOS # 0.1 10*3/uL (0.0-0.4); EOS % 0.8 % (1.0-4.0); HEMATOCRIT 34.8 % (42.0-52.0); LYMPH # 1.1 10*3/uL (1.3-4.4); MEAN CELL VOLUME 83.9 fl (80.0-94.0); MEAN CORPUSCULAR HGB 28.9 pg (27.0-31.0); MEAN CORPUSCULAR HGB CONC 34.5 g/dl (33.0-37.0); MEAN PLATELET VOLUME 11.1 fl (9.6-12.3); MONO # 1.5 10*3/uL (0.1-1.0); MONO % 9.3 % (3.0-9.0); NEUT % 81.3 % (47.0-73.0); PLATELET COUNT AUTOMATED 176 10*3/uL (130-400); RED BLOOD COUNT 4.15 10*6/uL (4.50-5.90); RED CELL DISTRI WIDTH 15.4 % (0-14.5); WHITE BLOOD COUNT 15.9 10*3/uL (4.8-10.8)
[2018-04-22 13:31] LABS: CREATININE 5.08 mg/dL (0.70-1.30); POTASSIUM 2.8 mmol/L (3.5-5.1)
== END | disposition home or self-care (01) ==
LOC: EDSTATUS 11:00
PROVIDERS: Student in an Organized Health Care Education/Training Program
DX: K70.31 Alcoholic cirrhosis of liver with ascites (principal); K21.9 Gastro-esophageal reflux disease without esophagitis; J44.9 Chronic obstructive pulmonary disease, unspecified; C79.9 Secondary malignant neoplasm of unspecified site; Z79.899 Other long term (current) drug therapy; Z87.891 Personal history of nicotine dependence

== ENCOUNTER → 2018-04-23 | Outpatient (CLI) | payer OTHER | END | disposition home or self-care (01) | LOC: RESCLI 14:25 | DX: N18.5 Chronic kidney disease, stage 5 (principal); C79.9 Secondary malignant neoplasm of unspecified site; K21.9 Gastro-esophageal reflux disease without esophagitis; J44.9 Chronic obstructive pulmonary disease, unspecified; E53.8 Deficiency of other specified B group vitamins; K70.31 Alcoholic cirrhosis of liver with ascites; J91.8 Pleural effusion in other conditions classified elsewhere; I95.9 Hypotension, unspecified; A41.9 Sepsis, unspecified organism; E86.1 Hypovolemia; R60.9 Edema, unspecified; R89.9 Unspecified abnormal finding in specimens from other organs, systems and tissues; Z71.6 Tobacco abuse counseling; Z87.891 Personal history of nicotine dependence ==

== ENCOUNTER → 2018-04-25 | Outpatient (CLI) | payer OTHER ==
[2018-04-25 14:34] LABS: HEMATOCRIT 37.6 % (42.0-52.0); HEMOGLOBIN 13.2 g/dl (14.0-18.0); MEAN CELL VOLUME 83.2 fl (80.0-94.0); MEAN CORPUSCULAR HGB 29.2 pg (27.0-31.0); MEAN CORPUSCULAR HGB CONC 35.1 g/dl (33.0-37.0); MEAN PLATELET VOLUME 10.6 fl (9.6-12.3); PLATELET COUNT AUTOMATED 188 10*3/uL (130-400); RED BLOOD COUNT 4.52 10*6/uL (4.50-5.90); RED CELL DISTRI WIDTH 15.5 % (0-14.5); WHITE BLOOD COUNT 19.8 10*3/uL (4.8-10.8)
[2018-04-25 14:45] LABS: CREATININE 5.71 mg/dL (0.70-1.30); POTASSIUM 2.5 mmol/L (3.5-5.1)
[2018-04-25 14:54] LABS: TOTAL CELLS COUNTED 100 #CELLS
[2018-04-25 14:55] LABS: BURR CELLS FEW; POLYCHROMASIA SLIGHT
[2018-04-25 14:56] LABS: PLATELET SUFFICIENCY NORMAL (NORMAL)
== END | disposition home or self-care (01) ==
LOC: LAB 13:56
PROVIDERS: Internal Medicine
DX: E87.6 Hypokalemia (principal); E86.0 Dehydration; C79.9 Secondary malignant neoplasm of unspecified site